=== PATIENT | male | born 1980 | race Caucasian/White ===

== ENCOUNTER 2025-02-16 06:21 | Day surgery (SDC) | payer OTHER, SELFPAY | END 2025-02-16 10:45 | disposition home or self-care (01) | LOC: GI 06:21 | PROVIDERS: ATTENDING PHYSICIAN Internal Medicine; FAMILY PHYSICIAN Family Medicine | DX: Z12.11 Encounter for screening for malignant neoplasm of colon (principal); K57.30 Diverticulosis of large intestine without perforation or abscess without bleeding; K63.5 Polyp of colon | CPT/HCPCS: 45385; 45380; 88305 ==

== ENCOUNTER → 2025-04-26 11:50 | Outpatient (REF) | payer BC, SELFPAY | LOC: HWRAD 11:50 | PROVIDERS: ATTENDING PHYSICIAN Family Medicine | DX: N50.819 Testicular pain, unspecified (principal); D29.20 Benign neoplasm of unspecified testis | CPT/HCPCS: 76870; 93976 ==